=== PATIENT | male | born 1995 | race African-American/Black ===

== ENCOUNTER 2024-08-08 10:25 | Emergency (ER) | payer SELFPAY ==
[~2024-08-08] VITALS: Ht 185.4 cm; Wt 149.7 kg
[2024-08-08 10:25] VITALS: PULSE 124; RESP 18; O2SAT 95
--- NOTE | 2024-08-08 10:36 | ECG ---
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
[2024-08-08 10:54] LABS: Chloride 104 mmol/L (98-107); Potassium 3.6 mmol/L (3.5-5.1); Sodium 141 mmol/L (136-145)
[2024-08-08 10:55] LABS: Anion Gap 9 (5-15); Calcium 10.1 mg/dL (8.7-10.4); Carbon Dioxide 28 mmol/L (20-31)
[2024-08-08 11:00] LABS: BUN/Creatinine Ratio 10.2 (10.0-20.0); Blood Urea Nitrogen 11 mg/dL (9-23)
[2024-08-08 11:02] LABS: Glucose 108 mg/dL (74-106)
--- NOTE | 2024-08-08 11:05 | ED.PDOC ---
HPI Comments 28y M who presents to the ED for chief complaint of palpitations. 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 staff attended to pt and pt vitals were checked with noted heart rate in the 180's and brought to the ED for further evaluation. Pt in the ED, states he is having palpitations with noted chest pain in the center of his chest, tightness and poking in sensation, constant, non-radiating, with no associated exacerbating or relieving factors. Pt in the ED, has noted heart rate of 124 with BP of 147/89, RR 18. Pt states his chest pain has been ongoing for the past 3 weeks. Pt notes stressors in his life. Pt otherwise denies any other symptoms at this time. P Chief Complaint: Chest Pain Time Seen by MD: 11:04 Primary Care Provider: YESENIA Garza Notes: Medications, Allergies Allergies: Coded Allergies: Mushroom Extract Complex (Verified Allergy, Unknown, 08/08/24) Home Meds Active Scripts Propranolol HCl (Propranolol Hydrochloride) 20 Mg Tab, 20 MG PO DAILY for 5 Days, #5 TAB Prov:TATIANA PEARL MD 08/08/24 Information Source: Patient Mode of Arrival: Ambulatory Constitutional: denies: chills, diaphoresis, fatigue, fever, malaise, sweats, weakness, others EENTM: denies: blurred vision, double vision, ear bleeding, ear discharge, ear drainage, ear pain, ear ringing, eye pain, eye redness, hearing loss, mouth pain, mouth swelling, nasal discharge, nose bleeding, nose congestion, nose pain, photophobia, tearing, throat pain, throat swelling, voice changes, others Respiratory: denies: cough, hemoptysis, orthopnea, SOB at rest, shortness of breath, SOB with excertion, stridor, wheezing, others Cardiovascular: reports: chest pain; denies: dizzy spells, diaphoresis, Dyspnea on exertion, edema, irregular heart beat, left arm pain, lightheadedness, palpitations, PND, syncope, others Gastrointestinal: denies: abdomen distended, abdominal pain, blood streaked bowels, constipated, diarrhea, dysphagia, difficulty swallowing, hematemesis, melena, nausea, poor appetite, poor fluid intake, rectal bleeding, rectal pain, vomiting, others Genitourinary: denies: burning, dysuria, flank pain, frequency, hematuria, incontinence, penile discharge, penile sore, pain, testicle pain, testicle swelling, urgency, others Neurological: denies: dizziness, fainting, headache, left sided numbness, left sided weakness, numbness, paresthesia, pre-existing deficit, right sided numbness, right sided weakness, seizure, speech problems, tingling, tremors, weakness, others Musculoskeletal: denies: back pain, gout, joint pain, joint swelling, muscle pain, muscle stiffness, neck pain, others Integumetry: denies: bruises, change in color, change in hair/nails, dryness, laceration, lesions, lumps, rash, wounds, others Allergic/Immunocompromised: denies: Difficulty Healing, Frequent Infections, Hives, Itching, others Hematologic/Lymphatic: denies: anemia, blood clots, easy bleeding, easy bruising, swollen glands, others Endocrine: denies: excessive hunger, excessive sweating, excessive thirst, excessive urination, flushing, intolerance to cold, intolerance to heat, unexplained weight gain, unexplained weight loss, others Psychiatric: denies: anxiety, bipolar disorder, depression, hopeless, panic disorder, schizophrenia, sleepless, suicidal, others All Other Systems: Reviewed and Negative Physical Exam General Appearance: Moderate Distress HEENT: Normal ENT Inspection, Pharynx Normal, TMs Normal Neck: Full Range of Motion, Non-Tender, Normal, Normal Inspection Respiratory: Chest Non-Tender, Lungs Clear, No Accessory Muscle Use, No Respiratory Distress, Normal Breath Sounds Cardiovascular: No Edema, No JVD, No Murmur, No Gallop, Normal Peripheral Pu lses, Tachycardia Breast Exam: Deferred Gastrointestinal: No Organomegaly, Non Tender, No Pulsatile Mass, Normal Bowel Sounds, Soft Genitalia: Deferred Pelvic: Deferred Rectal: Deferred Extremities: No calf tenderness, Normal capillary refill, Normal inspection, Normal range of motion, Non-tender, No pedal edema Musculoskeletal : Apperance: Normal Neurologic: Alert, drug worker II-XII nml as Tested, No Motor Deficits, Normal Affect, Normal Mood, No Sensory Deficits Cerebellar Function: Normal Reflexes: Normal Skin: Dry, Normal Color, Warm Peripheral Pulses: 3+ Radial (R), 3+ Radial (L) Lymphatic: No Adenopathy Was a procedure done? Was a procedure done?: No CP Differential Dx Differential Diagnosis: A-fib, A-Flutter, Angina, Anxiety / Panic Attack, Atrial Dysrhythmia, Electrolyte Disorder, Heart Failure, Pulmonary Embolus, PVC's, Renal Failure Differential Diagnosis: HTN Essential, HTN Accelerated X-Ray, Labs, Meds, VS Vital Signs Date Time Temp Pulse Resp B/P (MAP) Pulse Ox O2 Delivery O2 Flow Rate FiO2 08/08/24 13:22 96 15 147/98 (114) 98 08/08/24 12:24 115 150/112 08/08/24 11:08 108 08/08/24 11:08 97.9 108 17 151/100 (117) 98 97.9 08/08/24 10:29 115 08/08/24 10:25 98.8 124 18 147/89 (108) 95 98.8 08/08/24 10: 98.8 124 18 147/89 (108) 95 98.8 08/08/24 10:25 124 18 95 Room Air* 0 21 Lab Test 08/08/24 11:44 08/08/24 10:31 Range/Units Troponin I High Sensitivity 5 3 L </=54 ng/L D-Dimer, Quantitative < 0.19 0.0-0.49 mg/L FEU Sodium Level 141 136-145 mmol/L Potassium Level 3.6 3.5-5.1 mmol/L Chloride Level 104 98-107 mmol/L Carbon Dioxide Level 28 20-31 mmol/L Anion Gap 9 5-15 Blood Urea Nitrogen 11 9-23 mg/dL Creatinine 1.08 0.700-1.30 mg/dL Glomerular Filtration Rate Calc 96 >90 mL/min BUN/Creatinine Ratio 10.2 10.0-20.0 Serum Glucose 108 H 74-106 mg/dL Calcium Level 10.1 8.7-10.4 mg/dL Current Medications Medications (Trade) Dose Ordered Sig/Nuris Route Start Time Stop Time Status Last Admin Lorazepam (Ativan Inj) 2 mg ONCE ONCE IV 08/08/24 10:45 08/08/24 10:46 DC 08/08/24 11:35 Propranolol HCl (Inderal Tablet) 20 mg ONCE ONCE PO 08/08/24 12:15 08/08/24 12:16 DC 08/08/24 12:24 Patient alert. Came in because of chest pain. Vitals stable. Answering all questions. EKG reviewed does not show any acute changes. Cardiac marker within normal limits. D-dimer within normal limits. Was given Ativan. Spoke with the hospitalist for which they recommended propranolol. Was given prescription of propranolol. Explained to the patient. Was told to follow up with his primary care physician. Was told to come back if there is any problem. Time of 1ST Reevaluation: 12:30 Reevaluation 1ST: Improved Patient Education/Counseling: Diagnosis, Treatment Family Education/Counseling: Diagnosis, Treatment SEPSIS Sepsis Screen Date sepsis recognized/suspect: Aug 08, 2024 Time Sepsis recognized/suspect: 1024 Recent Procedure: No On Antibiotic Therapy: No Respiratory Rate >20: No Heart Rate >90: Yes (125) Temp<36 C (96.8 F) or >38.3 C: No SBP <90 or MAP <65 mmHG: No New Acute Mental Status Change: No Is the patient on CPAP, BIPAP,: No Vital Signs Date Time Temp Pulse Resp B/P (MAP) Pulse Ox O2 Delivery O2 Flow Rate FiO2 08/08/24 13:22 96 15 147/98 (114) 98 08/08/24 12:24 115 150/112 08/08/24 11:08 108 08/08/24 11:08 97.9 108 17 151/100 (117) 98 97.9 08/08/24 10:29 115 08/08/24 10:25 98.8 124 18 147/89 (108) 95 98.8 08/08/24 10:25 98.8 124 18 147/89 (108) 95 98.8 08/08/24 10:25 124 18 95 Room Air* 0 21 Medications Medications Dose Ordered Sig/Nuris Route Start Time Stop Time Status Last Admin Dose Admin Lorazepam 2 mg ONCE ONCE IV 08/08/24 10:45 08/08/24 10:46 DC 08/08/24 11:35 Propranolol HCl 20 mg ONCE ONCE PO 08/08/24 12:15 08/08/24 12:16 DC 08/08/24 12:24 Departure 1 Departure Time of Disposition: 12:31 Impression: Primary Impression: Musculoskeletal chest pain Additional Impression: Anxiety Disposition: 01 HOME / SELF CARE / HOMELESS Condition: Good e-Prescriptions Propranolol HCl (Propranolol Hydrochloride) 20 Mg Tab 20 MG PO DAILY for 5 Days, #5 TAB Prov: TATIANA PEARL MD 08/08/24 Discharged With: Self Critical Care Note Critical Care Time?: No Stability Stability form required: No Heart Score Heart Score: Heart Score Response (Comments) Value History Slightly Suspicious 0 EKG Normal 0 Age <45 0 Risk Factors No known risk factors 0 Troponin Normal limit 0 Total 0 I personally scribed for TATIANA PEARL MD ([email or web address]) on 08/08/24 at 11:05. Electronically submitted by Anne Ho ([email or web address]). TATIANA PEARL MD Aug 08, 2024 11:05
[2024-08-08 11:08] VITALS: TEMP 97.9
[2024-08-08] MEDS: LORazepam 2MG/ML-1ML VIAL IV ONE (11:35)
[2024-08-08] MEDS: PROPRANOLOL HCL 20 MG TAB PO ONE (12:24)
[2024-08-08] MEDS ORDERED: PROP1TAB53 PO (12:32)
[2024-08-08 13:22] VITALS: BP 147/98; PULSE 96; RESP 15; O2SAT 98
== END 2024-08-08 13:27 | disposition home or self-care (01) ==
LOC: ER 10:25
DX: R07.89 Other chest pain (principal); F41.9 Anxiety disorder, unspecified
CPT/HCPCS: 36415; 80048; 84484; 85379; 93005; 96374; 99284; J2060